=== PATIENT | male | born 1995 | race Caucasian/White ===

== ENCOUNTER 2016-11-12 08:09 | Day surgery (SDC) | payer OTHER ==
[~2016-11-12 08:09] MED LIST: DEXAMETHASONE SOD PHOS INJ 10 MG/1 ML VIAL ONE; FENTANYL CITRATE INJ/PF 100 MCG/2 ML AMPUL ONE; HYDROMORPHONE HCL INJ/PF 2 MG/ML AMPULE ONE; ONDANSETRON HCL INJ/PF 4 MG/2 ML SDV ONE; PROPOFOL INJ 200 MG/20 ML VIAL IV ONE; SUCCINYLCHOLINE CHLORIDE INJ 200 MG/10 ML VIAL ONE
[2016-11-12] MEDS ORDERED: MIDAZOLAM 2 MG/2 ML INJ ONE (09:09)
[2016-11-12] MEDS ORDERED: OXYMETAZOLINE HCL 0.05% NASAL SPRAY 15 ML BOTTLE ONE ×2 (09:35→11:44)
--- NOTE | 2016-11-12 10:13 | [facility]ICARE OPERATIVE REPORT E ---
[facility] Operative Report NAME: GEORGE POLANCO AGE: 21Y DATE OF SURGERY: 11/12/2016 ROOM: PREOPERATIVE DIAGNOSIS: Chronic tonsillitis. POSTOPERATIVE DIAGNOSIS: Chronic tonsillitis. OPERATION: Tonsillectomy. SURGEON: DAVID JORDAN M.D. ANESTHESIA: MD INDICATIONS: A 21-year-old male with a long history of chronic tonsillitis, chronic sore throats and recurrent strep infections, halitosis and tonsillith debris. Preop examination shows 3+ chronic tonsils. He was taken to the operating room for tonsillectomy. Risks and benefits discussed and accepted. OPERATIVE PROCEDURE: Under general anesthesia via endotracheal tube, patient was placed in the E[place] position. A McIvor mouth gag was inserted. Time out procedure was performed. A coblation tonsillectomy was performed. The right tonsil was seized at the superior pole and coblation tonsillectomy carried out. Large blood vessels and control with the suction cautery was required. Tonsil removed and submitted to pathology. Next, the left tonsil was removed in the same fashion. Again, cautery required. Final hemostasis was obtained with bipolar cautery and suction cautery where required. There were no complications. Total blood loss from the procedure was approximately 20 mL. The patient tolerated the procedure well and was taken to the recovery room area in satisfactory condition. DICTATING PHYSICIAN: DAVID JORDAN M.D. [id number] PHY#: [id number] ID: [id number] JOB#: [id number] ACCT: [id number] cc:DAVID JORDAN M.D. >
[2016-11-12] MEDS ORDERED: HYDROCOD/ACETAMIN 7.5-325 MG/15 ML ORAL SOLN UDCUP ONE (10:47)
== END 2016-11-12 11:45 | disposition home or self-care (01) ==
LOC: SC 08:09
PROVIDERS: ATTEND Otolaryngology
PROC: 0C5PXZZ Destruction of Tonsils, External Approach (ICD-10-PCS; principal; 2016-11-12 09:15)
DX: J35.1 Hypertrophy of tonsils (principal); F17.210 Nicotine dependence, cigarettes, uncomplicated
CPT/HCPCS: 88304 ×2; 42826; J2250; J3010; J1170; J3490; J0330; J2405; J2704; J1100; 170